=== PATIENT | male | born 1980 | race Caucasian/White ===

== ENCOUNTER 2017-03-07 23:13 | Emergency (ER) | payer OTHER ==
[2017-03-07 23:21] VITALS: BP 132/94; PULSE 106; RESP 18; TEMP 97.5; O2SAT 93
[2017-03-07] MEDS ORDERED: NEOMYCIN/POLYMYX B/HC SUSP 10 ML OTIC.BTL ONE (23:26)
--- NOTE | 2017-03-07 23:29 | EDPHY ---
H & P Time Seen by Provider: 03/07/17 23:15 HPI/ROS: Chief complaint: pressure to the right ear with discomfort on compression on the ear. HPI: 37-year-old male in prior good health. Over the last 3-4 days he has had a sense of decreased hearing in the right ear. Furthermore he notes that when he puts his head on the pillow it is quite uncomfortable and he is unable to do so. He has on occasion taken some ibuprofen with some relief but none of it makes so that he can lay his head on the pillow. He does not use Q-tips. He has not had any swimming exposure whereby he might have had contact in the ear. He has not had any URI or nasal drainage, stuffiness or eye crustiness. ROS: Constitutional - no fevers or chills. Eyes - no discharge, or injection ENT -see above Respiratory - No Shortness of breath, phlegm, wheezing or pleuritic chest pain. The cough is dry Smoking Status: Never smoked Physical Exam: Gen: Well developed, well nourished. Nontoxic. Overweight male. HEENT: Normocephalic. Ears: TMs are clear. Hearing decreased in the right ear. There is no swelling to the pinna per se however when I press on the posterior inferior aspect of the pinna at the skull it is uncomfortable. Does not have pain with palpation over the tragus per se. The canal is slightly edematous. There is moderate discharge in the canal. This was rinsed with for tsp of normal saline however there is still material up against the eardrum. Eyes: PERRL. No conjunctival injection or pallor. no jaundice. Nose: No nasal discharge. Sinuses are nontender. Skin: Good color, without pallor. There is no diaphoresis. Skin is warm and dry , without diaphoresis. Intact without rashes Constitutional: Initial Vital Signs Temperature (C) 36.4 C 03/07/17 23:15 Heart Rate 106 H 03/07/17 23:15 Respiratory Rate 18 03/07/17 23:15 Blood Pressure 132/94 H 03/07/17 23:15 O2 Sat (%) 93 03/07/17 23:15 O2 Delivery Mode Room Air Allergies/Adverse Reactions: No Known Allergies Allergy (Unverified 03/07/17 23:14) Home Medications: Medication Instructions Recorded NK [No Known Home Meds] 03/07/17 Departure - Departure Disposition: Home, Routine, Self-Care Clinical Impression: Otitis externa of right ear Qualifiers: Otitis externa type: unspecified type Chronicity: acute Qualified Code(s): H60.501 - Unspecified acute noninfective otitis externa, right ear Condition: Good Instructions: Otitis Externa (ED) Additional Instructions: Use the drops 4 times daily, 4 drops, 10 days. Dry Ear Care for the next two weeks. Use a cotton ball with antibiotic ointment. Return in 3 days time for week removal if you are unable to verify that it has fallen out Tylenol and Advil works well together the combination, 1000 mg and 600 mg every 8 hours Referrals: Patient,NotPresent [Primary Care Provider] - As per Instructions
[2017-03-07] MEDS ORDERED: NEOMY SULF/POLYMYX B SULF/HC 10ML OTIC SOLUTION RTEAR ONE (23:38)
== END 2017-03-07 23:42 | disposition home or self-care (01) ==
LOC: CED 23:13
DX: H60.501 Unspecified acute noninfective otitis externa, right ear (principal)

== ENCOUNTER → 2017-03-11 | Emergency (ER) | payer OTHER | END | disposition left against medical advice (07) | LOC: CED 09:34 | DX: Z53.21 Procedure and treatment not carried out due to patient leaving prior to being seen by health care provider (principal) ==